=== PATIENT | female | born 1995 | race Caucasian/White ===

== ENCOUNTER 2022-02-05 16:14 | Inpatient (IN) | payer OTHER ==
[~2022-02-05] VITALS: Ht 167.6 cm; Wt 102.1 kg
[2022-02-05] MEDS ORDERED: SODIUM BICARBONATE 8.4% 1 MEQ/ML 50ML SYR IV ONE (16:30)
[2022-02-05] MEDS ORDERED: ACTIVATED CHARCOAL 50 G/240 ML TUBE NG ONE (16:30)
[2022-02-05 16:52] LABS: BG BASE EXCESS -0.8 mmol/L (-2.0-2.0); BG CARBOXYHEMOGLOBIN 0.4 % (0.5-1.5); BG DEOXYHEMOGLOBIN 2.9 % (0.0-5.0); BG FRACTION INSPIRED OXYGEN 21; BG HCO3 ACT 23.9 mmol/L (22.0-26.0); BG METHEMOGLOBIN 0.6 % (0.0-1.5); BG OXYGEN SATURATION 97.1 % (92.0-98.5); BG OXYHEMOGLOBIN 96.1 % (94.0-97.0); BG PCO2 39.9 mmHg (35.0-45.0); BG PH 7.395 (7.350-7.450); BG PO2 85.8 mmHg (75.0-100.0); BG SAMPLE SITE LEFT BRACHIAL; BG VENT MODE ROOM AIR
[2022-02-05] MEDS ORDERED: ONDANSETRON HCL 4MG/2ML INJ IV ONE (17:00)
[2022-02-05 17:13] LABS: BASOPHILS % 0.7 % (0.0-2.0); EOSINOPHILS % 0.9 % (0.0-5.0); HEMATOCRIT. 44.5 % (36.0-48.0); HEMOGLOBIN. 15.3 g/dL (12.0-16.0); MEAN CORPUSCULAR HEMOGLOBIN 30.7 pg (28.0-32.0); MEAN PLATELET VOLUME 8.9 fl (7.4-10.4); MONOCYTES % 8.3 % (2.0-8.0); NEUTROPHILS % 65.1 % (40.0-76.0); PLATELET 238 x1000/uL (130-400); PROTHROMBIN TIME 10.3 sec (9.6-11.0); RED CELL DISTRIBUTION WIDTH 13.7 % (11.6-14.6)
[2022-02-05] MEDS: SODIUM BICARBONATE 150 MEQ in SODIUM CHLORIDE 0.45% 1,000 ML IV SCH (17:19)
[2022-02-05 17:26] LABS: CHLORIDE 107 mEq/L (98-107)
[2022-02-05] MEDS ORDERED: ACTIVATED CHARCOAL 50 G/240 ML TUBE PO ONE (17:30)
[2022-02-05 17:38] LABS: HCG SCREEN NEGATIVE
[2022-02-05 17:41] LABS: CREATINE KINASE 374 IU/L (26-192); ETHANOL BLOOD < 10 mg/dL
[2022-02-05 18:50] LABS: CHLORIDE 107 mEq/L (98-107)
[2022-02-05 19:56] LABS: CLARITY URINE CLEAR (CLEAR); COLOR URINE YELLOW (YELLOW); KETONES URINE NEGATIVE (NEGATIVE); LEUKOCYTE ESTERASE URINE TRACE (NEGATIVE); NITRITE URINE NEGATIVE (NEGATIVE); OCCULT BLOOD URINE NEGATIVE (NEGATIVE); PH URINE 6.5 (4.5-8.0); PROTEIN URINE NEGATIVE (NEGATIVE); SPECIFIC GRAVITY URINE 1.007 (1.005-1.030); UROBILINOGEN URINE 0.2 E.U./dL (0.2-1.0)
[2022-02-05 20:13] LABS: *AMPHETAMINES SCREEN URINE NEGATIVE (NEGATIVE); *BARBITURATES SCREEN URINE NEGATIVE (NEGATIVE); *BENZODIAZEPINES SCREEN URINE NEGATIVE (NEGATIVE); *COCAINE SCREEN URINE NEGATIVE (NEGATIVE); CANNABINOID URINE SCREEN NEGATIVE (NEGATIVE); METHADONE URINE SCREEN NEGATIVE (NEGATIVE); OPIATES URINE SCREEN NEGATIVE (NEGATIVE); PHENCYCLIDINE URINE SCREEN NEGATIVE (NEGATIVE)
[2022-02-05] MEDS ORDERED: IPRATROPIUM/ALBUTEROL 0.5-3(2.5)MG/3ML NEB HHN PRN (23:15)
[2022-02-05] MEDS ORDERED: NA PHOS,M-B/NA PHOS,DI-BA ENEMA 118ML PR PRN (23:15)
[2022-02-05] MEDS ORDERED: CLONIDINE 0.1MG TABLET PO PRN (23:15)
[2022-02-05] MEDS ORDERED: ONDANSETRON HCL 4MG/2ML INJ IV PRN (23:15)
[2022-02-05] MEDS ORDERED: KETOROLAC 30MG/ML VIAL IM PRN (23:15)
[2022-02-05 23:29] LABS: CHLORIDE 107 mEq/L (98-107)
[2022-02-05 23:44] LABS: BG BASE EXCESS -0.3 mmol/L (-2.0-2.0); BG CARBOXYHEMOGLOBIN 0.7 % (0.5-1.5); BG DEOXYHEMOGLOBIN 4.1 % (0.0-5.0); BG HCO3 ACT 24.5 mmol/L (22.0-26.0); BG METHEMOGLOBIN 0.4 % (0.0-1.5); BG OXYGEN SATURATION 95.9 % (92.0-98.5); BG OXYHEMOGLOBIN 94.8 % (94.0-97.0); BG PCO2 40.6 mmHg (35.0-45.0); BG PH 7.398 (7.350-7.450); BG PO2 75.7 mmHg (75.0-100.0); BG SAMPLE SITE RIGHT RADIAL; BG TOTAL HEMOGLOBIN 15.5 g/dL (12.0-18.0); BG VENT MODE ROOM AIR
[2022-02-06 01:25] LABS: CHLORIDE 107 mEq/L (98-107)
[2022-02-06 02:50] LABS: CHLORIDE 107 mEq/L (98-107)
[2022-02-06] MEDS: SODIUM BICARBONATE 150 MEQ in SODIUM CHLORIDE 0.45% 1,000 ML IV SCH (04:00)
[2022-02-06] MEDS ORDERED: DEXT 5%/0.45% NACL 500ML 500 ML IV SCH (04:15)
[2022-02-06 05:02] LABS: CHLORIDE 106 mEq/L (98-107)
[2022-02-06 06:15] LABS: BASOPHILS % 0.5 % (0.0-2.0); HEMATOCRIT. 46.3 % (36.0-48.0); HEMOGLOBIN. 15.7 g/dL (12.0-16.0); LYMPHOCYTES % 30.8 % (20.0-50.0); MEAN CORPUSCULAR HEMOGLOBIN 30.9 pg (28.0-32.0); MONOCYTES % 9.7 % (2.0-8.0); PLATELET 207 x1000/uL (130-400); RED BLOOD CELL COUNT 5.08 mill/uL (4.2-5.4); RED CELL DISTRIBUTION WIDTH 13.6 % (11.6-14.6)
[2022-02-06 06:57] LABS: CHLORIDE 106 mEq/L (98-107)
[2022-02-06 07:12] LABS: CREATINE KINASE 331 IU/L (26-192); T4 FREE 0.68 ng/dL (0.76-1.46)
[2022-02-06] MEDS: FAMOTIDINE 20MG/2ML VIAL IV SCH ×2 (09:10→22:12)
[2022-02-06] MEDS: ENOXAPARIN 30MG/0.3ML SYR SUBCUT SCH ×2 (09:15→22:12)
[2022-02-06 10:23] LABS: CHLORIDE 107 mEq/L (98-107)
[2022-02-06 13:40] LABS: CHLORIDE 107 mEq/L (98-107)
[2022-02-06 20:00] VITALS: BP_SYST 112; BP_SYST 116; BP_DIAS 47; BP_DIAS 56
[2022-02-06] MEDS: LACTATED RINGERS 1,000 ML IV SCH (22:10)
[2022-02-07] VITALS: BP 100/62
[2022-02-07 04:00] VITALS: BP 96/48
[2022-02-07 07:47] LABS: HEMATOCRIT 42.7 % (36.0-48.0); HEMOGLOBIN 14.5 g/dL (12.0-16.0); MEAN CORPUSCULAR HEMOGLOBIN 30.6 pg (28.0-32.0); PLATELET 196 x1000/uL (130-400); RED BLOOD CELL COUNT 4.74 mill/uL (4.2-5.4); RED CELL DISTRIBUTION WIDTH 13.3 % (11.6-14.6)
[2022-02-07] MEDS: FAMOTIDINE 20MG/2ML VIAL IV SCH (08:40)
[2022-02-07] MEDS: ENOXAPARIN 30MG/0.3ML SYR SUBCUT SCH ×2 (08:41→20:22)
[2022-02-07] MEDS: LACTATED RINGERS 1,000 ML IV SCH ×2 (09:04→17:27)
[2022-02-07 09:45] VITALS: BP 110/54
[2022-02-07 10:00] LABS: CHLORIDE 105 mEq/L (98-107)
[2022-02-07 10:07] LABS: PHOSPHORUS 3.3 mg/dL (2.5-4.9)
[2022-02-07 12:00] VITALS: BP 109/80
[2022-02-07 13:42] LABS: CREATINE KINASE 177 IU/L (26-192)
[2022-02-07 16:00] VITALS: BP 100/65
[2022-02-07 20:00] VITALS: BP 95/55
[2022-02-07] MEDS: FAMOTIDINE 20MG TABLET PO SCH (20:22)
[2022-02-08] VITALS: BP 92/54
[2022-02-08] MEDS: LACTATED RINGERS 1,000 ML IV SCH ×2 (02:31→09:37)
[2022-02-08 04:00] VITALS: BP 91/54
[2022-02-08 07:52] VITALS: BP 95/64
[2022-02-08] MEDS: FAMOTIDINE 20MG TABLET PO SCH (09:33)
[2022-02-08] MEDS: ENOXAPARIN 30MG/0.3ML SYR SUBCUT SCH (09:36)
[2022-02-08 12:00] VITALS: BP 99/58
[2022-02-08 16:00] VITALS: BP 120/57
[2022-02-08 18:37] VITALS: BP 132/56
[2022-02-09] MEDS ORDERED: ARIPIPRAZOLE 5MG TABLET PO SCH (09:00)
== END 2022-02-08 18:55 | DRG 918 ==
LOC: ER 16:22 → MICUSO 19:32 → EDBEDREQTM 19:44 → EDBEDREQ 19:44 → 7WST 02-06 18:06
PROVIDERS: ADMIT Internal Medicine; ATTEND Internal Medicine
DX: T39.012A Poisoning by aspirin, intentional self-harm, initial encounter (principal); E87.20 Acidosis, unspecified; F25.9 Schizoaffective disorder, unspecified; F42.9 Obsessive-compulsive disorder, unspecified; F63.3 Trichotillomania; F32.A Depression, unspecified; F16.10 Hallucinogen abuse, uncomplicated; Z20.822 Contact with and (suspected) exposure to COVID-19; F41.9 Anxiety disorder, unspecified; Z91.199 Patient's noncompliance with other medical treatment and regimen due to unspecified reason; Z91.51 Personal history of suicidal behavior; Z79.899 Other long term (current) drug therapy; Y92.89 Other specified places as the place of occurrence of the external cause
CPT/HCPCS: 36415; 36600; 71045; 80048; 80053; 80305; 80307; 80320; 80329; 81003; 82140; 82375; 82550; 82805; 83605; 83735; 84100; 84439; 84443; 84484; 84703; 85025; 85027; 86850; 86900; 87426; 99291; J1650; J2405; J3490; J7120; G0480